=== PATIENT | female | born 1985 | race Hispanic/Latino ===

== ENCOUNTER 2018-09-16 21:04 | Inpatient (IN) ==
[2018-09-16] MEDS ORDERED: PEPCID IV PRN (21:24)
[2018-09-16] MEDS ORDERED: TYLENOL PO PRN (21:24)
[2018-09-16] MEDS ORDERED: PITOCIN 30 UNITS/NS 30 UNIT/500 ML IV.SOLN ONE (21:24)
[2018-09-16] MEDS ORDERED: REGLAN PO ONE (21:24)
[2018-09-16] MEDS ORDERED: PEPCID PO ONE (21:24)
[2018-09-16] MEDS ORDERED: KEFZOL 1 GM/D5W 1 GM/50 ML IVPB IV PRN (21:24)
[2018-09-16] MEDS ORDERED: PEPCID PO PRN (21:24)
[2018-09-16] MEDS ORDERED: LR 1,000 ML ONE (21:24)
[2018-09-16] MEDS ORDERED: AMPICILLIN 2 GM/NS 2 GM/100 ML IVPB IV ONE (21:24)
[2018-09-16] MEDS ORDERED: STADOL IV PRN (21:24)
[2018-09-16] MEDS ORDERED: ZOFRAN IV PRN (21:24)
[2018-09-16] MEDS ORDERED: MINERAL OIL PRN (21:27)
[2018-09-16] MEDS ORDERED: XYLOCAINE-MPF 1% INJ PRN ×2 (21:28→22:08)
[2018-09-16] MEDS ORDERED: PITOCIN 30 UNITS/NS 30 UNIT/500 ML IV.SOLN IV SCH ×2 (21:30→22:15)
[2018-09-16] MEDS ORDERED: LR 1,000 ML IV SCH (21:30)
[2018-09-16] MEDS ORDERED: SODIUM CHLORIDE 0.9% INJ SCH (21:30)
[2018-09-16] MEDS ORDERED: BENADRYL IV PRN (22:08)
[2018-09-16] MEDS ORDERED: NORCO-10 PO PRN (22:08)
[2018-09-16] MEDS ORDERED: M-M-R II VACCINE SUBQ ONE (22:08)
[2018-09-16] MEDS ORDERED: CYTOTEC PO PRN (22:08)
[2018-09-16] MEDS ORDERED: ATARAX PO PRN (22:08)
[2018-09-16] MEDS ORDERED: AMBIEN PO PRN (22:08)
[2018-09-16] MEDS ORDERED: BENADRYL PO PRN (22:08)
[2018-09-16] MEDS ORDERED: PITOCIN IM PRN (22:08)
[2018-09-16] MEDS ORDERED: HYDROXYZINE IM PRN (22:08)
[2018-09-16] MEDS ORDERED: NORCO-5 PO PRN (22:08)
[2018-09-16] MEDS ORDERED: PERI MEDS (DERMOPLAST/NUPERCAINAL/TUCKS) MISC PRN (22:08)
[2018-09-16] MEDS ORDERED: BOOSTRIX VACCINE IM ONE (22:08)
[2018-09-16] MEDS ORDERED: MINERAL OIL PO PRN (22:08)
[2018-09-16 22:09] LABS: BASO# 0.02 X1000 (0.0-0.2); BASO% 0.2 % (0.0-0.8); EOS# 0.18 X1000 (0.0-0.7); EOS% 1.7 % (0.0-10.0); HEMATOCRIT 27.4 % (37.0-47.0); HEMOGLOBIN 8.5 g/dL (12.0-16.0); IMM GRAN# 0.05 X1000 (0.0-0.04); IMM GRAN% 0.5 % (0.0-0.5); LYMPH# 2.87 X1000 (1.2-3.4); LYMPH% 26.9 % (20.5-51.1); MCH 24.3 PG (27-31); MCV 78.3 FL (81-99); MONO# 0.79 X1000 (0.11-0.59); MONO% 7.4 % (1.7-9.3); MPV 10.1 FL (7.4-10.4); NEUT# 6.77 X1000 (1.4-6.5); NEUT% 63.3 % (42.2-75.2); PLT 441 X1000 (130-400); RDW 21.2 % (11.5-14.5); WBC 10.68 X1000 (4.8-10.8)
[2018-09-16] MEDS ORDERED: PITOCIN 20 UNITS/NS 20 UNITS/1,000 ML IV.SOLN IV SCH (22:15)
--- NOTE | 2018-09-16 22:28 | HISTORY AND PHYSICAL ---
CHIEF COMPLAINT: Active labor. HISTORY OF PRESENT ILLNESS: The patient is a 33-year-old, female, G5, P4, who presents with no care with onset of uterine contractions and urge to push. The patient was noted to have rupture of membranes upon admittance to the labor and delivery. PAST MEDICAL HISTORY: Unremarkable. PAST SURGICAL HISTORY: None. PAST OB HISTORY: , spontaneous vaginal delivery x4. [employer] HISTORY: Menarche at age 17. Based on her last menstrual period, her dates today place her at 38 weeks and 1 day. FAMILY HISTORY: Unremarkable. SOCIAL HISTORY: Tobacco use, none. Alcohol use, none. MEDICATIONS: vitamins. ALLERGIES: No known drug allergies. PHYSICAL EXAMINATION: VITAL SIGNS: Height 4, feet 9 inches, weight 150 pounds. Blood pressure 122/80, pulse of 100, temperature 97. Respirations 20. heart rate was in the 160s with [id number] variability. HEENT: Pupils equal, round, reactive to light and accommodation. Extraocular movements intact. Oropharynx clear. NECK: Supple. No thyromegaly. LUNGS: Clear to auscultation. HEART: Regular rate and rhythm. ABDOMEN: Gravid, nontender. PELVIC EXAM: At the time that I arrived, patient had gone from 8 to complete with meconium stained fluid noted as well as head. EXTREMITIES: No clubbing, cyanosis, or edema noted. NEUROLOGIC: Cranial nerves 2-12 grossly intact. Motor 5/5. DTRs 2+ bilaterally. ASSESSMENT/PLAN: Intrauterine 38 and 1/7 weeks by last menstrual period. Presents with active labor with no care. The patient's labor course rapidly progressed and unable to give antibiotics for GBS prophylaxis secondary to unknown status. Expect vaginal delivery. cc: Sang Edgar III, MD
[2018-09-16 22:39] LABS: RAPID HIV PRESUMPTIVE NEGATIVE; RPR NON-REACTIVE (NONREACTIVE)
[2018-09-16] MEDS: MOTRIN PO PRN (22:41)
[2018-09-17] MEDS ORDERED: AMPICILLIN 1 GM/NS 1 GM/50 ML IVPB IV SCH (01:25)
--- NOTE | 2018-09-17 02:14 | OPERATIVE NOTE ---
PROCEDURE DATE: 09/16/2018 DELIVERY NOTE: Patient progressed to complete, pushed and had spontaneous vaginal delivery of a female infant, 5 pounds, 13 ounces. 's of 9 and 10 at 2145 hours on 09/16/2018 over intact perineum. Placenta was delivered intact with 3 vessel cord. Meconium-stained fluid was noted at time of delivery. Estimated blood loss 200 mL. was bulb suctioned at the nose and mouth. All counts were correct x2. cc: Sang Edgar III, MD
[2018-09-17 06:07] LABS: BASO# 0.03 X1000 (0.0-0.2); BASO% 0.3 % (0.0-0.8); EOS% 0.9 % (0.0-10.0); HEMATOCRIT 25.1 % (37.0-47.0); HEMOGLOBIN 7.6 g/dL (12.0-16.0); IMM GRAN# 0.04 X1000 (0.0-0.04); IMM GRAN% 0.4 % (0.0-0.5); LYMPH# 2.25 X1000 (1.2-3.4); LYMPH% 21.3 % (20.5-51.1); MCH 24.2 PG (27-31); MCHC 30.3 g/dL (33-37); MCV 79.9 FL (81-99); MONO# 0.85 X1000 (0.11-0.59); MPV 9.6 FL (7.4-10.4); NEUT# 7.29 X1000 (1.4-6.5); NEUT% 69.1 % (42.2-75.2); PLT 367 X1000 (130-400); RBC 3.14 XMIL (4.2-5.4); RDW 21.2 % (11.5-14.5); WBC 10.56 X1000 (4.8-10.8)
[2018-09-17] MEDS: MOTRIN PO PRN ×2 (07:30→20:29)
--- NOTE | 2018-09-17 08:17 | OB/GYN PROGRESS NOTE ---
Progress Note OB - . Patient Problems: Current Active Problems Problem Status Onset Non-Japanese speaking patient Acute No care in current Acute Intrauterine Acute OB Progress Note: Vital Signs - 24 hr 09/16/18 23:55 09/17/18 02:15 09/17/18 05:30 Temperature 97 F L 96.2 F L 96.4 F L Pulse Rate 89 75 74 Respiratory Rate 18 18 16 Blood Pressure 116/68 114/66 103/55 O2 Sat by Pulse Oximetry 99 97 99 09/17/18 07:35 Temperature 96.9 F L Pulse Rate 84 Respiratory Rate 18 Blood Pressure 101/66 O2 Sat by Pulse Oximetry 99 Laboratory Results - last 24 hr 09/16/18 09/16/18 09/16/18 20:35 20:35 20:35 WBC 10.68 RBC 3.50 L Hgb 8.5 L Hct 27.4 L MCV 78.3 L MCH 24.3 L MCHC 31.0 L RDW Std Deviation 21.2 H Plt Count 441 H MPV 10.1 Immature Gran % (Auto) 0.5 Neut % (Auto) 63.3 Lymph % (Auto) 26.9 [place] % (Auto) 7.4 Eos % (Auto) 1.7 Baso % (Auto) 0.2 Immature Gran # (Auto) 0.05 H Neut # (Auto) 6.77 H Lymph # (Auto) 2.87 [place] # (Auto) 0.79 H Eos # (Auto) 0.18 Baso # (Auto) 0.02 Glucose 83 Urine Source Urine Color Urine Clarity Urine pH Ur Specific [place] Urine Protein Urine Ketones Urine Blood Urine Nitrite Urine Bilirubin Urine Urobilinogen Urine WBC Urine Glucose RPR NON-REACTIVE HIV 1&2 Antibody Rapid PRESUMPTIVE NEGATIVE Blood Type Antibody Screen 09/16/18 09/16/18 09/17/18 20:35 21:40 05:50 WBC 10.56 RBC 3.14 L Hgb 7.6 L Hct 25.1 L MCV 79.9 L MCH 24.2 L MCHC 30.3 L RDW Std Deviation 21.2 H Plt Count 367 MPV 9.6 Immature Gran % (Auto) 0.4 Neut % (Auto) 69.1 Lymph % (Auto) 21.3 [place] % (Auto) 8.0 Eos % (Auto) 0.9 Baso % (Auto) 0.3 Immature Gran # (Auto) 0.04 Neut # (Auto) 7.29 H Lymph # (Auto) 2.25 [place] # (Auto) 0.85 H Eos # (Auto) 0.10 Baso # (Auto) 0.03 Glucose Urine Source Cancelled Urine Color Cancelled Urine Clarity Cancelled Urine pH Cancelled Ur Specific [place] Cancelled Urine Protein Cancelled Urine Ketones Cancelled Urine Blood Cancelled Urine Nitrite Cancelled Urine Bilirubin Cancelled Urine Urobilinogen Cancelled Urine WBC Cancelled Urine Glucose Cancelled RPR HIV 1&2 Antibody Rapid Blood Type O POSITIVE Antibody Screen NEGATIVE Note Patient doing well. no complaints. Lochia less than menses AFVSS General: AAO x3 in NAD HEENT: NCAT CV: S1 S2 normal Lungs: some wheezing on expiration, patient coughing Abd: fundus firm. positive bowel sounds Ext: no edema A/P: PPD #0 s/p Anemia - start iron po bid - encourage ambulation - continue care - plan discharge home tomorrow
[2018-09-17] MEDS: FERROUS SULFATE PO SCH ×2 (09:41→20:29)
[2018-09-17 10:11] LABS: URINE SOURCE VOIDED
[2018-09-17 10:17] LABS: BILIRUBIN URINE NEGATIVE (NEGATIVE); BLOOD URINE 2+ (NEGATIVE); CLARITY CLEAR (CLEAR); COLOR YELLOW; GLUCOSE URINE NEGATIVE (NEGATIVE); KETONE URINE NEGATIVE (NEGATIVE); LEUKOCYTES URINE TRACE (NEGATIVE); NITRITE URINE NEGATIVE (NEGATIVE); PH URINE 6.5; PROTEIN URINE TRACE mg/dL (NEGATIVE); SP GRAVITY URINE 1.015; UROBILINOGEN URINE NORMAL
[2018-09-17 10:53] LABS: UR AMPHETAMINES QUAL NONE DETECTED (NONE DETECT); UR BARBITUATES QUAL NONE DETECTED (NONE DETECT); UR BENZODIAZEPIN QUAL NONE DETECTED (NONE DETECT); UR CANNABINOIDS QUAL NONE DETECTED (NONE DETECT); UR COCAINE QUAL NONE DETECTED (NONE DETECT); UR METHADONE QUAL NONE DETECTED (NONE DETECT); UR METHAMPHETAMINE QUAL NONE DETECTED (NONE DETECT); UR OPIATES QUAL NONE DETECTED (NONE DETECT); UR OXYCODONE QUAL NONE DETECTED (NONE DETECT); UR PCP QUAL NONE DETECTED (NONE DETECT); UR PROPOXYPHENE QUAL NONE DETECTED (NONE DETECT); UR TCA QUAL NONE DETECTED (NONE DETECT)
[2018-09-17 17:02] LABS: RUBELLA SCREEN NON IMMUNE (IMMUNE)
[2018-09-17] MEDS: PERICOLACE PO SCH (20:29)
[2018-09-17 23:28] LABS: HIV ANTIBODY SCREEN SEE COMMENTS
[2018-09-18] MEDS: FERROUS SULFATE PO SCH ×2 (09:41→20:56)
[2018-09-18 09:54] LABS: HEPATITIS B SURFACE ANTIGEN SEE COMMENTS
--- NOTE | 2018-09-18 10:47 | OB/GYN PROGRESS NOTE ---
Progress Note OB - . Patient Problems: Current Active Problems Problem Status Onset Non-Maltese speaking patient Acute No care in current Acute Intrauterine Acute OB Progress Note: Vital Signs - 24 hr 09/17/18 11:15 09/17/18 17:45 09/17/18 23:30 Temperature 96.9 F L 97.6 F 96.8 F L Pulse Rate 76 88 71 Respiratory Rate 18 20 16 Blood Pressure 99/63 119/75 108/64 O2 Sat by Pulse Oximetry 99 100 09/18/18 07:15 Temperature 96.1 F L Pulse Rate 76 Respiratory Rate 18 Blood Pressure 107/68 O2 Sat by Pulse Oximetry 98 Laboratory Results - last 24 hr 09/16/18 09/16/18 09/16/18 20:35 20:35 22:39 Urine Opiates Screen Ur Oxycodone Screen Urine Methadone Screen U Propoxyphene Qual Ur Barbituates Screen Ur Tricyclics Screen Ur Phencyclidine Scrn Ur Amphetamines Screen U Methamphetamines Scrn U Benzodiazepines Scrn Urine Cocaine Screen U Cannabinoids Screen Hep Bs Antigen SEE COMMENTS HIV 1&2 Antibody Screen SEE COMMENTS Rubella Immunity Screen NON IMMUNE H 09/17/18 09:55 Urine Opiates Screen NONE DETECTED Ur Oxycodone Screen NONE DETECTED Urine Methadone Screen NONE DETECTED U Propoxyphene Qual NONE DETECTED Ur Barbituates Screen NONE DETECTED Ur Tricyclics Screen NONE DETECTED Ur Phencyclidine Scrn NONE DETECTED Ur Amphetamines Screen NONE DETECTED U Methamphetamines Scrn NONE DETECTED U Benzodiazepines Scrn NONE DETECTED Urine Cocaine Screen NONE DETECTED U Cannabinoids Screen NONE DETECTED Hep Bs Antigen HIV 1&2 Antibody Screen Rubella Immunity Screen POST NOTE Patient doing well today. ambulating without difficulty. lochia less than menses AFVSS General: AAOx3 in NAD HEENT: NCAT CV: S1 S2 normal Lungs Clear Abd: fundus firm, positive bowel sounds Ext: no edema PPD#1 s/p - continue current care - plan discharge home tomorrow to self care
[2018-09-18] MEDS: PERICOLACE PO SCH (20:56)
[2018-09-19] MEDS: MOTRIN PO PRN (08:27)
[2018-09-19 08:29] VITALS: BP 97/53
[2018-09-19] MEDS: FERROUS SULFATE PO SCH (09:05)
--- NOTE | 2018-09-19 16:01 | DISCHARGE SUMMARY ---
ADMISSION DATE: 09/16/2018 DISCHARGE DATE: 09/19/2018 HOSPITAL COURSE: The patient was admitted as a 33-year-old G5, P4-0-0-4 with an IUP at term. The patient came in with complaints of ruptured membranes and was admitted. She was delivered of a live viable female , weighing 5 pounds 13 ounces, Apgars of 9 and 10 at 1 and 5 minutes, respectively. The patient's postoperative course was unremarkable, and she is being discharged home in stable condition. DISCHARGE EXAMINATION: Patient is afebrile. Vital signs are stable. Temperature of 96.2 degrees, pulse 77, respiratory rate 20, blood pressure 97/53. General: Patient is awake, alert, oriented x3. HEENT: Patient is normocephalic, atraumatic. Cardiovascular: S1, S2 were normal. Lungs: Clear. Abdomen: Fundus is firm about 3 cm below the umbilicus. Positive bowel sounds. No edema. ASSESSMENT AND PLAN: 1. day #2 status post a normal spontaneous vaginal delivery. Patient is being discharged home in a stable condition. 2. Anemia. Patient is being sent home with iron tablets. 3. She is given Motrin for pain. 4. She is to follow up with Dr. Edgar in 6 weeks for her routine check. cc: MD Sang De La Cruz III, MD
== END 2018-09-19 11:25 | disposition home or self-care (01) | DRG 807 ==
LOC: EDBD → P.OPLD 21:04 → P.LD 21:10
PROVIDERS: ADMIT Obstetrics & Gynecology; ATTEND Obstetrics & Gynecology
CPT/HCPCS: 80104; 80301; 80305; 81003; 82947; 85025; 86592; 86701; 86703; 86762; 86850; 86900; 86901; 87340; 87389; 87390; 87491; 87591; 90707; 90715; A9270; G0431; G0434; G0477; J2590; J7120